=== PATIENT | female | born 1945 | race Caucasian/White ===

== ENCOUNTER 2020-10-12 11:45 | Emergency (ER) | payer MEDICARE, OTHER ==
[~2020-10-12] VITALS: Ht 160 cm; Wt 70.8 kg
[2020-10-12] MEDS ORDERED: LOSARTAN POTASS25 MG (11:57)
[2020-10-12] MEDS ORDERED: CRESTOR10 MG (11:57)
[2020-10-12] MEDS ORDERED: FAMOTIDINE 20 MG/2 ML VIAL IV STA (12:28)
[2020-10-12] MEDS ORDERED: MECLIZINE HCL 12.5 MG TAB PO ONE (12:30)
[2020-10-12] MEDS ORDERED: MECLIZINE HCL 12.5 MG TAB ONE (13:15)
[2020-10-12] MEDS ORDERED: MECLIZINE HCL12.5 MG PO ×2 (13:17→13:45)
[2020-10-12] MEDS ORDERED: ONDANSETRON ODT8 MG PO ×2 (13:19→13:45)
[2020-10-12 14:18] VITALS: BP 151/69
== END 2020-10-12 14:00 | disposition home or self-care (01) ==
LOC: FSED 12:15
DX: R42 Dizziness and giddiness (principal); I10 Essential (primary) hypertension; E78.5 Hyperlipidemia, unspecified; R94.31 Abnormal electrocardiogram [ECG] [EKG]
CPT/HCPCS: 70450; 80053; 81003; 85025; 93005; 99284; J8597

== ENCOUNTER 2024-03-30 13:00 | Outpatient (RCR) | payer MEDICARE ==
[~2024-03-30 13:00] MED LIST: CRESTOR10 MG; LOSARTAN POTASS25 MG; MECLIZINE HCL12.5 MG PO; ONDANSETRON ODT8 MG PO
== END 2024-04-03 ==
LOC: PT 13:00
PROVIDERS: ATTEND Student in an Organized Health Care Education/Training Program
DX: M94.261 Chondromalacia, right knee (principal)

== ENCOUNTER 2024-04-05 08:12 | Outpatient (RCR) | payer MEDICARE | END 2024-05-04 | LOC: PT 08:12 | PROVIDERS: ATTEND Student in an Organized Health Care Education/Training Program | DX: M94.261 Chondromalacia, right knee (principal) ==

== ENCOUNTER 2024-05-17 10:00 | Outpatient (RCR) | payer MEDICARE | END 2024-06-04 | LOC: PT 10:00 | PROVIDERS: ATTEND Student in an Organized Health Care Education/Training Program | DX: M94.261 Chondromalacia, right knee (principal) ==